=== PATIENT | female | born 1990 | race Two or more races ===

== ENCOUNTER 2017-10-26 15:07 | Emergency (ER) | payer OTHER ==
--- NOTE | 2017-10-26 16:00 | ER Document Report ---
ED General - General Chief Complaint: Post Surgical Pain Stated Complaint: MOUTH PAIN Time Seen by Provider: 10/26/17 15:36 Mode of Arrival: Ambulatory - HPI Notes: 5-year-old female presents to the ER today for complaints of difficulty swallowing, facial pain status post lower wisdom teeth extraction approximately 10 days ago that was done any of the hospital on October [address] Mcadams. Patient reports she is having trouble opening her mouth, trouble swallowing, the pain is preventing her from sleeping. Was seen this morning at [facility] for these complaints. Patient has been back a total of 6 times at [facility] and evaluated by dentist each time for complaints of acute pain since her surgery. They told her that she does not have any complications, from her extraction. Patient was prescribed clindamycin 300 mg 4 times a day for 7 days, Flexeril, Valium as well as oxycodone for pain. Patient states this has helped somewhat but not completely. Reports pain is 8 out of 10, throbbing ache. Patient just finished clindamycin dose today. Patient reports chills, unsure fevers. Patient's last menstrual period was 4 days ago. Denies . Denies chest pain,palpitations, shortness of breath, dyspnea, nausea, vomiting, diarrhea, abdominal pain, hematuria,blurred vision, double vision, loss of vision, speech changes, LH, dizziness, syncope, headaches, wheezing, ST, URI, neck pain, weakness, bowel or bladder dysfunction, saddle anesthesia, numbness or tingling in bilateral upper or lower extremities equally , muscle paralysis, weakness in bilateral upper or lower extremities equally or rash. Denies IV drug use. - Related Data Allergies/Adverse Reactions: amoxicillin Allergy (Verified 10/26/17 15:09) Penicillins Allergy (Verified 10/26/17 15:09) Past Medical History - General Information source: Patient - Social History Smoking Status: Never Smoker Chew tobacco use (# tins/day): No Frequency of alcohol use: None Drug Abuse: None Family History: Reviewed & Not Pertinent Patient has suicidal ideation: No Patient has homicidal ideation: No Renal/ Medical History: Denies: Hx Peritoneal Dialysis Review of Systems - Review of Systems Constitutional: See HPI EENT: See HPI Cardiovascular: No symptoms reported Respiratory: No symptoms reported Gastrointestinal: No symptoms reported Genitourinary: No symptoms reported Female Genitourinary: No symptoms reported Musculoskeletal: No symptoms reported Skin: No symptoms reported Hematologic/Lymphatic: No symptoms reported Neurological/Psychological: No symptoms reported Physical Exam - Vital signs Vitals: Temp Pulse Resp BP Pulse Ox 98.7 F 90 16 119/78 100 10/26/17 15:11 10/26/17 15:11 10/26/17 15:11 10/26/17 15:11 10/26/17 15:11 - Notes Notes: PHYSICAL EXAMINATION: GENERAL: Well-appearing, well-nourished and in no acute distress. HEAD: Atraumatic, normocephalic. EYES: Pupils equal round and reactive to light, extraocular movements intact, conjunctiva are normal. ENT: Nares patent, oropharynx clear without exudates. Moist mucous membranes. Noted scant swelling to right lower jaw. Noted trismus bilaterally. no, angioedema or drooling. bilateral arches equal. Uvula midline. The salivary glands appear unremarkable. The tongue is midline. The posterior pharynx is without erythema or exudate. The tonsils are normal appearing. NECK: Normal range of motion, supple without lymphadenopathy. Full APROM. LUNGS: Breath sounds clear to auscultation bilaterally and equal. No wheezes rales or rhonchi. HEART: Regular rate and rhythm without murmurs ABDOMEN: Soft, nontender, nondistended abdomen. No guarding, no rebound. No masses appreciated. Female : deferred Musculoskeletal: Normal range of motion, no pitting or edema. No cyanosis. NEUROLOGICAL: Cranial nerves grossly intact. Normal speech, normal gait. Normal sensory, motor exams PSYCH: Normal mood, normal affect. SKIN: Warm, Dry, normal turgor, no rashes or lesions noted. Course - Re-evaluation Re-evalutation: 10/26/17 17:25 Healthy 27-year-old female who is afebrile, vitals stable and in mild distress due to pain who presents for evaluation of pain and trismus with difficulty swallowing 10 days after having wisdom teeth extracted. Patient has been seen at least 6 times by a dentist unable after having surgery for evaluation of this pain. They have told her that she does not have any complications from surgery and pt states that she was told by the dentists that "as far as they are considered, they are not done treating her symptoms are no complications". CT soft tissue neck negative for any abscess or fluid collection. Does show post wisdom teeth extraction inflammation. Discussed with patient will place her on prednisone, take as directed. Advised patient continue taking Valium, Flexeril as directed. Advised to follow-up with her dentist as well. Apply heat 20 minutes on 20 minutes off several times a day., Soft food diet. do not drive drink or operate heavy machinery while taking muscle relaxers I have reevaluated this patient multiple times and no significant life threatening changes, no signs of toxicity, sepsis or peritonitis are noted. The patient and I have discussed the diagnosis and risks, and we agree with discharging home and close follow-up. We also discussed returning to the Emergency Department immediately if new or worsening symptoms occur with the understanding that symptoms and presentations can change. At this time will discharge with return precautions and follow-up recommendations. Verbal discharge instructions given a the bedside and opportunity for questions given. We have discussed the symptoms which are most concerning (e.g., saddle anesthesia, urinary or bowel incontinence or retention, changing or worsening pain) that necessitate immediate return. Medication warnings reviewed. Patient is in agreement with this plan and has verbalized understanding of return precautions and the need for primary care follow-up in the next 24-72 hours. Patient verbalized understanding of plan of care and agree with plan of care. After performing a Medical Screening Examination, I estimate there is LOW risk for a DEEP SPACE INFECTION (e.g., ZARA'S ANGINA OR RETROPHARYNGEAL ABSCESS), MENINGITIS, INTRACRANIAL HEMORRHAGE, or AIRWAY COMPROMISE, thus I consider the discharge disposition reasonable. Also, there is no evidence or peritonitis, sepsis, or toxicity. I have reevaluated this patient multiple times and no significant life threatening changes are noted. The patient and I have discussed the diagnosis and risks, and we agree with discharging home with close follow-up with the understanding that symptoms and presentations can change. We also discussed returning to the Emergency Department immediately if new or worsening symptoms occur. We have discussed the symptoms which are most concerning (e.g., changing or worsening pain, trouble swallowing or breathing, neck stiffness or fever) that necessitate immediate return. 10/26/17 19:19 - Vital Signs Vital signs: Temp Pulse Resp BP Pulse Ox 98.7 F 90 16 119/78 100 10/26/17 15:11 05/17/18 15:11 10/26/17 15:11 10/26/17 15:11 10/26/17 15:11 Discharge - Discharge Clinical Impression: Facial pain H/O wisdom tooth extraction Qualifiers: Tooth loss class: unspecified tooth loss Qualified Code(s): K08.409 - Partial loss of teeth, unspecified cause, unspecified class Condition: Good Disposition: HOME, SELF-CARE Instructions: Dentist Additional Instructions: You have been seen for dental pain. It is very important that you follow-up with a dentist for definitive care. Please return if you develop fever greater than 101, swelling in your face, vomiting, difficulty breathing or swallowing, or any other symptoms that are concerning to you. For pain you should take ibuprofen 600 mg every 6 hours as needed. Any medications that you have been prescribed as directed. Do not drive, drink alcohol or operate heavy machinery while taking medication. Take prednisone as directed. Follow-up with her dentist in the next 1-2 days. Follow a bland diet. Avoid any aggravating foods. Return to the emergency room if symptoms become worse. Return immediately for any new or worsening symptoms. Follow up with primary care provider, call tomorrow to make followup appointment. Prescriptions: Prednisone [Deltasone 20 mg Tablet] 3 tab PO DAILY 5 Days #15 tablet Forms: Return to Work Referrals: CARMELLA SHULTZ MD [ACTIVE STAFF] - Follow up in 3-5 days
[2017-10-26] MEDS ORDERED: MORPHINE SULFATE 10 MG/ML INJ IV ONE (16:02)
--- NOTE | 2017-10-26 18:06 | RADIOLOGY REPORT (SQ) ---
EXAM DESCRIPTION: CT SOFT TISSUE NECK WITH COMPLETED DATE/TIME: 10/26/2017 5:54 pm REASON FOR STUDY: s/p wisd teeth extract, +trismus, pain w/ swallowi COMPARISON: None. TECHNIQUE: Post IV contrasted scanning from skull base through lung apices with review of bone, soft tissue and lung windows. Reconstructed coronal and sagittal MPR images reviewed. All images stored on PACS. All CT scanners at this facility use dose modulation, iterative reconstruction, and/or weight based d osing when appropriate to reduce radiation dose to as low as reasonably achievable (ALARA). [facility]: Dose Right [facility]: CareDose [facility]: Dose Right [facility]: Teradose 4D [facility]: Beepi CONTRAST TYPE AND DOSE: contrast/concentration: Isovue 370.00 mg/ml; Total Contrast Delivered: 75.0 ml; Total Saline Delivered: 55.0 ml RENAL FUNCTION: None required. The patient is less than 50 years old. RADIATION DOSE: CT Rad equipment meets quality standard of care and radiation dose reduction techniq ues were employed. CTDIvol: 7.8 mGy. DLP: 204 mGy-cm. . LIMITATIONS: None. FINDINGS: SKULL BASE: Intact. MAJOR SALIVARY GLANDS: No solid or cystic masses. No inflammatory changes. LYMPHADENOPATHY: No adenopathy. MUCOSAL MASSES OR ASYMMETRY: No mucosal masses or asymmetry. LARYNX/CORDS: No abnormal findings. VASCULAR STRUCTURES: The major vessels are patent. LUNG APICES: Clear. BONES: Intact. THYROID: Normal size. No masses. PARANASAL SINUSES: Clear. OTHER: Expected postoperative change related to extraction of bilateral mandibular wisdom teeth. IMPRESSION: EXPECTED POSTOPERATIVE CHANGE RELATED TO EXTRACTION OF BILATERAL MANDIBULAR WISDOM TEETH . OTHERWISE UNREMARKABLE CONTRAST-ENHANCED CT OF THE FACE/NECK. NO DRAINABLE FLUID COLLECTION/ ABSC ESS. TECHNICAL DOCUMENTATION: JOB ID: [id number] Quality ID # [id number]: Final reports with documentation of one or more dose reduction techniques (e.g., Au tomated exposure control, adjustment of the mA and/or kV according to patient size, use of iterative reconstruction technique) 2010 [employer]- All Rights Reserved Reading location - IP/workstation name: [email or web address]
[2017-10-26 19:40] VITALS: BP 126/77
== END 2017-10-26 19:38 | disposition home or self-care (01) ==
LOC: ER 15:07
DX: R51 Headache (principal); K08.409 Partial loss of teeth, unspecified cause, unspecified class; R13.10 Dysphagia, unspecified; R25.2 Cramp and spasm; Z88.0 Allergy status to penicillin; Z98.890 Other specified postprocedural states
CPT/HCPCS: 99283; 96374; 70491; J2270